=== PATIENT | male | born 1940 | race Caucasian/White ===

== ENCOUNTER → 2021-10-22 12:46 | Outpatient (BNVA) | payer MEDICARE, SELFPAY | PROVIDERS: Family Provider Nurse Practitioner Family; PCP Nurse Practitioner Family; Visit Provider Internal Medicine Cardiovascular Disease | DX: I25.10 Atherosclerotic heart disease of native coronary artery without angina pectoris (principal); I10 Essential (primary) hypertension; E78.5 Hyperlipidemia, unspecified; I73.9 Peripheral vascular disease, unspecified; Z87.891 Personal history of nicotine dependence | CPT/HCPCS: 99204 ==

== ENCOUNTER 2021-12-23 12:25 | Outpatient (CLI) | payer MEDICARE, SELFPAY ==
--- NOTE | 2021-12-23 12:45 | USCV_ITS ---
Solangegabriela Dima Age: 81 Gender: M : 1940 Exam Date: 12/23/2021 12:31 Ordering Phys: Pebbles Dominguez MD ([email or web address]) Technologist: CT Exam Location[place] [facility] [place]ication: pad Risk Factors: Previous Vascular Surgery: RIGHT LEFT BP: 139.0 / 59.00 BP: 143.0/ 62.00 0 0 Waveform Velocity (cm/s) Velocity (cm/s) Waveform Triphasic 129.6 Iliac Prox 127.1 Biphasic Triphasic 149.6 Iliac Mid 151.9 Biphasic Triphasic 172.1 Iliac Distal 199.8 Biphasic Triphasic 222.2 SECRETARIAL TEACHER 106.5 Biphasic Biphasic 126.2 SFA Prox 93.3 Biphasic Biphasic 234.8 SFA Mid 123.9 Biphasic Biphasic SFA Dist Biphasic 71.3 235.9 Biphasic 59.1 POP 61.1 Biphasic Biphasic 42.3 YARD HOSTLER 63.3 Biphasic DPA 34.3 Biphasic 1.0 LESLEE 0.[address] dpa ocluded, some stenosis in sfa's Mild diffuse plaque in the iliac and femoral artery on the right side. Normal Doppler flow signals in the right dorsalis pedis artery. Mild to moderate diffuse plaque in the iliac and femoral arteries on the left side. Resting LESLEE of 1.0 on the right and 0.9 on the left CONCLUSIONS 1. Normal resting LESLEE of 1.0 on the right side with a mild diffuse plaque in the iliac and femoral arteries. The right dorsalis pedis artery appears to be occluded. 2. Abnormal resting LESLEE of 0.9 on the left side suggesting mild peripheral artery disease. Mild to moderate diffuse plaques were noted in the iliac and femoral arteries on the left side. Dr Ramses Brian MD [facility] (Electronically Signed) Final Date: 24 December 2021 09:45 S
== END 2021-12-23 12:26 | disposition home or self-care (01) ==
LOC: RAD 12:26
PROVIDERS: PCP Nurse Practitioner Family; Visit Provider Internal Medicine Cardiovascular Disease
DX: I73.9 Peripheral vascular disease, unspecified (principal)
CPT/HCPCS: 93925

== ENCOUNTER 2022-02-04 08:07 | Outpatient (CLI) | payer MEDICARE, SELFPAY ==
--- NOTE | 2022-02-04 | ECG_ITS ---
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 Interpretive Statements NAME OF STUDY: LEXISCAN SESTAMIBI STRESS TEST INDICATION: Chest Pain PROCEDURE: At the baseline, the blood pressure was 146/94 mm Hg with a heart rate of 70 bpm. The electrocardiogram showed sinus rhythm, normal axis and no specific T wave inversion in lead III, aVF, V5 and V6. ??? The Lexiscan was infused over a period of 20 seconds. A total of 0.4 milligrams of Lexiscan was infused. The stress phase was continued for a total of 5 minutes. Heart rate at the end of the stress phase was 81 bpm with a blood pressure of 160/72 mm Hg. The EKG at the peak infusion revealed no significant ST-T wave changes. The study was terminated due to protocol completion. ??? Sestamibi was injected 20 seconds after the Lexiscan infusion. ??? Blood pressure at the end of the recovery phase was 144/68 mm Hg with a heart rate of 79 beats per minute. ??? CONCLUSION: 1. No significant EKG changes with the LexiScan infusion. 2. No LexiScan induced chest pain or cardiac arrhythmia. 3. Normal blood pressure and heart rate response. 4. Sestamibi/sestamibi perfusion scan pending; see separate report. Electronically Signed On 02-07-2022 8:50:38 COMPENSATOR WORKER by Pebbles Dominguez M.D. [id number]
--- NOTE | 2022-02-04 08:16 | NMCV_ITS ---
NM jeison perf SPECT r/s* [id number] Dima Page Age: 81 Gender: M : 1940 Exam Date: 02/04/2022 09:30 Ordering Phys: Pebbles Dominguez MD ([email or web address]) Technologist: LIZZETH Escalante Exam Location: [facility] Indications: CHEST PAIN, ATHEROSCLEROTIC HEART DISEASE OF [place] CORONARY ARTERY STRESS TEST Please see separate stress test report in [facility] for full findings IMAGE PROTOCOL Rest/Stress 1 Lexiscan Day Radiopharmaceutical Dose (mCi) Administration Site Administered by Rest: Tc-99m 10.7 IV LIZZETH Vallejo Sestamibi Stress:Tc-99m 32.2 IV LIZZETH Vallejo Sestamibi Rest: 04-Feb-2022 60 Discovery 630 Stress: 04-Feb-2022 30 Discovery 630 0.4mg Lexiscan. Images obtained in supine and prone position. SPECT RESULTS Technical Quality: Excellent Raw Data Analysis: Normal Image Corrections: No attenuation or motion correction applied Summed Stress Score: 16 Summed Rest Score: 14 Summed Difference Score: 3 PERFUSION FINDINGS Large sized perfusion abnormality of moderate to severe severity of basal to apical inferior, basal to mid inferolateral, apical lateral and apical downing on rest images with mild reversibility in the basal and apical lateral downing on stress images. FUNCTIONAL RESULTS (calculated via Gated SPECT) Stress Image LV EF (%): 60 Stress EDV (mL):120 TID: 0.96 Stress ESV (mL):48 FUNCTIONAL FINDINGS: The left ventricle is normal in size. Transient Ischemia Dilatation of 0.96. The left ventricular ejection fraction is normal with a value of 60%. There is hypokinesis of inferior wall. IMPRESSIONS 1. Large sized perfusion abnormality of basal to apical inferior, basal to mid inferolateral, apical lateral and apical downing with mild reversibility in the basal and apical lateral downing on stress images. 2. This is suggestive of old myocardial infarction and right coronary artery and circumflex artery territory with mild nicolas-infarct ischemia in circumflex artery territory. 3. The left ventricular ejection fraction is normal with a value of 60%. There is hypokinesis of inferior wall. 4. EKG portion of the study will be reported separately. Pebbles Dominguez MD (Electronically Signed) Final Date: 10 February 2022 16:56 S
[2022-02-04 08:53] VITALS: BMI 25.5
[2022-02-04] MEDS: regadenoson 0.4 Mg/5 ml Syringe IVP (10:01)
[2022-02-04 11:10] VITALS: BP 144/68; PULSE 76
== END 2022-02-04 08:08 | disposition home or self-care (01) ==
PROVIDERS: PCP Nurse Practitioner Family; Visit Provider Internal Medicine Cardiovascular Disease
DX: R07.9 Chest pain, unspecified (principal); I25.10 Atherosclerotic heart disease of native coronary artery without angina pectoris
CPT/HCPCS: 36415; 78452; 93017; 96374; A9500; J2785

== ENCOUNTER → 2022-03-18 14:37 | Outpatient (BNVA) | payer MEDICARE, SELFPAY | PROVIDERS: PCP Nurse Practitioner Family; Visit Provider Internal Medicine Cardiovascular Disease | DX: R00.1 Bradycardia, unspecified (principal); I10 Essential (primary) hypertension; I25.10 Atherosclerotic heart disease of native coronary artery without angina pectoris; E78.5 Hyperlipidemia, unspecified; I73.9 Peripheral vascular disease, unspecified; Z87.891 Personal history of nicotine dependence | CPT/HCPCS: 99214; Q3014 ==

== ENCOUNTER 2022-06-03 16:48 | Outpatient (CLI) | payer MEDICARE, SELFPAY ==
--- NOTE | 2022-06-03 17:01 | XR_ITS ---
WS: [id number] XR chest 2V* [id number] REASON FOR EXAM: DYSPNEA FINDINGS: No recent exam for comparison. Previous sternotomy with probable left internal mammary coronary bypass. Coronary artery stents. Normal heart size. Coarse reticular interstitial lung opacities with patchy groundglass density in the lower lobes. Moderate degenerative spondylosis in the mid and lower thoracic spine with flowing anterior osteophyt e formation. XR/XR chest 2V* [id number] IMPRESSION: Previous coronary bypass surgery and stent intervention. The lung changes are of unknown chronicity without relatively recent prior exam ination for comparison. Findings could represent acute or subacute congestive h eart failure or pneumonitis.
== END 2022-06-03 16:49 | disposition home or self-care (01) ==
PROVIDERS: PCP Nurse Practitioner Family; Visit Provider Nurse Practitioner Family
DX: R06.00 Dyspnea, unspecified (principal)
CPT/HCPCS: 71046

== ENCOUNTER 2022-10-20 14:38 | Outpatient (CLI) | payer MEDICARE, SELFPAY ==
--- NOTE | 2022-10-20 14:44 | CT_ITS ---
WS: [id number] CT chest wo con [id number] HISTORY: ABNORMAL CHEST XRAY TECHNIQUE: Axial imaging performed through the thorax. Coronal and sagittal reformats are submitted. All CT scans at [facility] use at least one of these dose optimization techniques: automated exposure control; mA and/or kV adjustment per patient size (includes targeted exams where dose is mat ched to clinical indication); or iterative reconstruction. CONTRAST: None DLP: 235.42 mGy.cm COMPARISON: Chest radiograph 06/03/2022 Lungs and central airway: Hyperinflated lungs. Mild flattening and elevation of the RIGHT hemidiaphra gm. There is moderate interstitial thickening in the periphery of the upper and lower lung hidalgo. Gr eatest in the RIGHT lower lung field. As compared to the chest radiograph the aeration appears improv ed. Majority of the changes persisting now are probably related to chronic interstitial lung disease. No definite honeycombing. Bilateral upper lobe pulmonary nodules. RIGHT upper lobe pulmonary nodule is 3 mm. LEFT upper lobe pulmonary nodule 4.4 mm. Additional LEFT lower lobe pulmonary nodule measuri ng 4 mm no areas of dense consolidation or pneumonia. Pleura: Normal. No pleural effusion. Heart and pericardium: Prior CABG. Heart is top normal size. Very dense point [place] coronary artery calcif ications. Mediastinum and fatuma: No mediastinum or hilar adenopathy. Vessels: Moderate atherosclerosis aorta. No aneurysm. Calcification continues into the proximal great vessels. Normal sized pulmonary artery. Chest wall and lower neck: No soft tissue masses. Upper abdomen: Small hiatal hernia. Fullness in the renal pelves. Kidneys are incompletely visualized but I suspect these are benign parapelvic cysts. Splenic granulomata. Mild atrophy of the pancreas. No adrenal mass. Osseous structures: Osteopenia. Ossification of the outer fibers of the annulus fibrosis IMPRESSION: 1. Overall as compared to the chest radiograph there has been improvement in the aeration of both aldo gs. 2. Peripheral interstitial thickening is most likely due to interstitial pulmonary fibrosis. Bilatera l pulmonary nodules as described above. Recommend follow-up chest CT in 6 months. 3. Prior CABG. 4. No mediastinal or hilar adenopathy. 5. Ankylosing spondylitis thoracic spine.
== END 2022-10-20 14:39 | disposition home or self-care (01) ==
PROVIDERS: PCP Nurse Practitioner Family; Visit Provider Nurse Practitioner Family
DX: R91.8 Other nonspecific abnormal finding of lung field (principal); Z95.1 Presence of aortocoronary bypass graft; M45.4 Ankylosing spondylitis of thoracic region
CPT/HCPCS: 71250

== ENCOUNTER → 2022-10-22 14:22 | Outpatient (BNVA) | payer MEDICARE, SELFPAY | PROVIDERS: PCP Nurse Practitioner Family; Visit Provider Internal Medicine Pulmonary Disease | DX: R40.0 Somnolence (principal); J84.10 Pulmonary fibrosis, unspecified; R91.8 Other nonspecific abnormal finding of lung field | CPT/HCPCS: 99204 ==

== ENCOUNTER 2023-01-06 11:07 | Outpatient (CLI) | payer MEDICARE, SELFPAY ==
--- NOTE | 2023-01-06 11:12 | USCV_ITS ---
SolangeDima ochoa Age: 82 Gender: M : 1940 Exam Date: 01/06/2023 11:18 Ordering Phys: Jermain Kay MD Technologist: [place] [facility] [place]: pvd Risk Factors: Previous Vascular Surgery: RIGHT LEFT BP: 138.0 / 61.00 BP: 140.0/ 78.00 0 0 Waveform Velocity (cm/s) Velocity (cm/s) Waveform Triphasic 124.6 Iliac Prox 165.4 Biphasic Biphasic 145.7 Iliac Mid 148.1 Biphasic Biphasic 145.9 Iliac Distal 173.7 Biphasic Biphasic 135.2 CAMP NURSE 113.7 Biphasic Biphasic 131.7 SFA Prox 97.1 Biphasic Biphasic 328.5 SFA Mid 258.5 Biphasic Biphasic SFA Dist Biphasic 124.0 152.3 Biphasic 60.3 POP 83.6 Biphasic Biphasic 49.4 SUPERVISOR SHOP 65.1 Triphasic N/A DPA 66.1 Triphasic 0.9 LESLEE 1.0 FINDINGS Mild diffuse plaques were noted at the iliac, femoral and popliteal arteries bilaterally Elevated Doppler flow velocities in the distal SFA bilaterally on the right and mid SFA on the left No Doppler signals in the right dorsalis pedis artery. Resting LESLEE of 0.9 on the right side and 1.0 on the left side CONCLUSIONS 1. Slightly diminished resting LESLEE on the right side suggesting mild peripheral artery disease. 2. Normal resting LESLEE on the left side, suggesting no significant arterial obstruction. 3. Elevated Doppler flow velocities and flow turbulence at the distal SFA on the right side and mid SFA on the left side ,suggesting greater than 50% stenosis. Consider exercise LESLEE to better evaluate the functional Significance Dr Ramses Brian MD [facility] (Electronically Signed) Final Date: 11 January 2023 20:03 S
== END 2023-01-06 11:08 | disposition home or self-care (01) ==
LOC: RAD 11:07
PROVIDERS: PCP Nurse Practitioner Family; Visit Provider Internal Medicine
DX: I73.9 Peripheral vascular disease, unspecified (principal)
CPT/HCPCS: 93925

== ENCOUNTER 2023-01-07 12:50 | Outpatient (CLI) | payer MEDICARE, SELFPAY ==
--- NOTE | 2023-01-07 13:30 | CT_ITS ---
WS: [id number] CT chest wo con [id number] HISTORY: 3 month f/u TECHNIQUE: Axial imaging performed through the thorax. Coronal and sagittal reformats are submitted. All CT scans at [facility] use at least one of these dose optimization techniques: automated exposure control; mA and/or kV adjustment per patient size (includes targeted exams where dose is mat ched to clinical indication); or iterative reconstruction. CONTRAST: None DLP: 330.13 mGy.cm COMPARISON: 10/20/2022 Lungs and central airway: Hyperexpansion with moderate bilateral peripheral interstitial thickening. Previously described subcentimeter pulmonary nodules are reidentified in the upper lobes and LEFT low er lobe. These nodules are all similar to 10/20/2022. There has been increase in the amount of pleural thickening suggesting mild fluid overload. This is noted bilaterally. Also there is slight increase in the amount of interstitial prominence suggesting there also may be mild edema present. No mass or consolidation. Pleura: No significant effusions. Heart and pericardium: Prior CABG. Mild cardiomegaly. Mediastinum and fatuma: No adenopathy Vessels: Moderate atherosclerosis aorta. No aneurysm. Normal sized pulmonary artery. Chest wall and lower neck: No soft tissue masses. Upper abdomen: Small hiatal hernia. Fullness in the renal pelvis. I suspect there is a benign parapel elizabet cyst. Splenic granulomata. Pancreatic atrophy. Osseous structures: No destructive bone lesions. IMPRESSION: 1. Interstitial fibrosis appears very slightly more prominent than on the prior study with no areas o f consolidation. Stable bilateral nodules which are all less than a centimeter. 2. Mild increased thickening along the fissures. Favor there is probably a small amount of fluid over load. No pneumonia. 3. Prior CABG. 4. Mild cardiomegaly. 5. No acute interval change upper abdomen.
== END 2023-01-07 12:51 | disposition home or self-care (01) ==
LOC: RAD 12:50
PROVIDERS: PCP Nurse Practitioner Family; Visit Provider Internal Medicine Pulmonary Disease
DX: R91.8 Other nonspecific abnormal finding of lung field (principal); J84.10 Pulmonary fibrosis, unspecified; Z95.1 Presence of aortocoronary bypass graft; I51.7 Cardiomegaly
CPT/HCPCS: 71250

== ENCOUNTER → 2023-01-20 14:46 | Outpatient (BNVA) | payer MEDICARE, SELFPAY | PROVIDERS: PCP Nurse Practitioner Family; Visit Provider Nurse Practitioner Family | DX: L57.0 Actinic keratosis (principal); D48.5 Neoplasm of uncertain behavior of skin; L81.4 Other melanin hyperpigmentation; L57.8 Other skin changes due to chronic exposure to nonionizing radiation; D22.5 Melanocytic nevi of trunk | CPT/HCPCS: 11102; 17000; 99213 ==

== ENCOUNTER 2023-02-04 09:57 | Outpatient (CLI) | payer MEDICARE, SELFPAY ==
--- NOTE | 2023-02-04 10:15 | USCV_ITS ---
Dima Page Age: 82 Gender: M : 1940 Exam Date: 02/04/2023 10:27 Ordering Phys: Jose Emery MD Technologist: KRISTI [place] [facility] [place]ication: EVAL OF LV FX BP: 130 / 70 HR: 73 Rhythm: Sinus Technical Quality: Adequate MEASUREMENTS (Male / Female) Normal Values 2D ECHO LV Chamber Size 4.2 cm RV Chamber Size 3.3 cm LVOT Diameter 2.0 cm LV Ejection Fraction MOD 2C 44.8 % LV Ejection Fraction 2C AL 44.9 % LA Diameter 4.6 cm LA Width 3.8 cm LA Height 5.1 cm RA Width 3.5 cm RA Height 5.1 cm Aorta at Sinotubular Diameter 3.2 cm IVC Diameter 1.7 cm M-MODE Aortic Annulus Diameter 3.4 cm LA Ao Ratio MM 1.5 MV E Point Septal Separation 0.6 cm DOPPLER AV Peak Velocity 132.0 cm/s LVOT Peak Velocity 79.0 cm/s AV Area Cont Eq vti 2.1 cm squared AV Area Cont Eq pk 1.9 cm squared MV Area PHT 3.1 cm squared Mitral E to A Ratio 1.1 MV E' Velocity 64.0 cm/s Mitral E to MV E' Ratio 13.0 Mitral E to LV E' Lateral Ratio 13.6 Mitral E to LV E' Septal Ratio 12.5 TR Peak Velocity 259.3 cm/s TR Peak Gradient 26.9 mmHg TR Mean Velocity 215.4 cm/s TR Mean Gradient 19.4 mmHg TR Velocity Time Integral 87.2 cm TV Peak E Velocity 73.0 cm/s Right Atrial Pressure 3.0 mmHg Pulmonary Artery Systolic Pressu 29.9 mmHg PV Peak Velocity 67.3 cm/s RV Acceleration Time 0.1 s RV Ejection Time 0.4 s RV AcT/ET 0.3 FINDINGS Left Ventricle Normal LV size with diminished ejection fraction of 45%. Moderate diffuse hypokinesia of the inferior wall. Mild diffuse hypokinesia of the anteroseptal segments. Right Ventricle The right ventricle is normal in size and function. Right Atrium The right atrium is normal in size. Left Atrium Moderately increased left atrial size. Mitral Valve Moderate mitral annular calcification. Moderate mitral valve regurgitation. Aortic Valve Thickened aortic valve. Tricuspid Valve Trace to mild tricuspid valve regurgitation. Estimated pulmonary artery peak systolic pressure 30 mmHg Pulmonic Valve No gross abnormalities noted Pericardium Normal pericardium without effusion. Aorta Normal ascending aorta dimension. IVC Normal inferior vena cava. CONCLUSIONS Normal LV size with diminished ejection fraction of 45%. Moderate diffuse hypokinesia of the inferior wall. Mild diffuse hypokinesia of the anteroseptal segments. Moderately increased left atrial size. Moderate mitral annular calcification. Moderate mitral valve regurgitation. Thickened aortic valve. Trace to mild tricuspid valve regurgitation. Estimated pulmonary artery peak systolic pressure 30 mmHg There is no pericardial effusion. There are no intracardiac masses. No similar previous studies are available for comparison Dr Ramses Brian MD [facility] (Electronically Signed) Final Date: 06 February 2023 08:57 S
== END 2023-02-04 09:58 | disposition home or self-care (01) ==
LOC: RAD 09:57
PROVIDERS: PCP Nurse Practitioner Family; Visit Provider Internal Medicine Pulmonary Disease
DX: R06.81 Apnea, not elsewhere classified (principal); I08.3 Combined rheumatic disorders of mitral, aortic and tricuspid valves
CPT/HCPCS: 93306; 94010; 94618; 94726; 94729

== ENCOUNTER → 2023-02-10 10:30 | Outpatient (BNVA) | payer MEDICARE, SELFPAY | PROVIDERS: PCP Nurse Practitioner Family; Visit Provider Nurse Practitioner Family | DX: M79.661 Pain in right lower leg (principal); M79.662 Pain in left lower leg; I10 Essential (primary) hypertension; E55.9 Vitamin D deficiency, unspecified; Z12.5 Encounter for screening for malignant neoplasm of prostate; R53.83 Other fatigue | CPT/HCPCS: 80053; 80061; 82306; 82607; 83735; 84403; 84443; 85025; G0103 ==

== ENCOUNTER 2023-02-24 13:46 | Outpatient (CLI) | payer MEDICARE, SELFPAY ==
[2023-02-24 14:02] LABS: Basophils # 0.1 10^3/uL (0.0-0.1); Basophils % 0.8 %; Eosinophils # 0.9 10^3/uL (0.0-0.8); Eosinophils % 8.4 %; Lymphocytes # 1.6 10^3/uL (0.8-4.8); Lymphocytes % 14.9 %; Mean Corpuscular HGB Conc 32.6 g/dL (30-55); Mean Corpuscular Hemoglobin 30.2 pg (27-33); Mean Corpuscular Volume 92.4 fl (82-101); Mean Platelet Volume 9.1 fL (7.4-10.4); Monocytes % 9.4 %; Neutrophils % 66.1 %; Nucleated Red Blood Cells % 0 %; Platelet Count 288 10^3/cmm (157-399); Red Blood Count 3.68 10^6/uL (3.85-5.65); Red Cell Distribution Width 13.2 % (12.1-15.1); White Blood Count 10.74 10^3/uL (3.29-11.43)
[2023-02-24 14:23] LABS: Alanine Aminotransferase 6 U/L (0-41); Albumin Level 4.3 g/dL (3.5-5.2); Alkaline Phosphatase 66 U/L (40-130); Anion Gap 19.2 (5-19); Aspartate Amino Transferase 15 U/L (0-40); Blood Urea Nitrogen 31 mg/dL (8-23); Calcium 9.2 mg/dL (8.5-10.5); Carbon Dioxide 22 mmol/L (22-29); Chloride 102 mmol/L (98-107); Ferritin 56 ng/mL (30-400); Globulin 3.5 g/dL (1.3-4.6); Glucose 99 mg/dL (65-115); Iron 55 ug/dL (59-158); Osmolality Calculated 295 mOsm/kg (285-295); Percent Saturation 20.1 % (20-50); Potassium 4.2 mmol/L (3.5-5.1); Sodium 139 mmol/L (136-145); Total Bilirubin 0.4 mg/dL (0.15-1.2); Total Iron Binding Capacity 273 mcg/dl; Total Protein 7.8 g/dL (6.6-8.7); Unsaturated Iron Binding 218 ug/dL (112-347)
--- NOTE | 2023-02-24 14:30 | USCV_ITS ---
Dima Page Age: 82 Gender: M : 1940 Exam Date: 02/24/2023 14:18 Ordering Phys: Emily Rae NURSE EPIDEMIOLOGIST NURSE EPIDEMIOLOGIST Technologist: CT Exam Location: [facility] – [place] Indication: swelling PROCEDURES: Venous duplex imaging was performed in bilateral lower extremities. Bilaterally, the common femoral, superficial femoral, profunda femoral, popliteal, posterior tibial, greater saphenous veins, and the peroneal trunk were identified and interrogated in the standard fashion. These veins were found to be easily compressible with spontaneous blood flow. No evidence of insufficiency or thrombus noted. FINDINGS: no dvt CONCLUSIONS No evidence of right lower extremity DVT. No evidence of left lower extremity DVT. Theron Sears MD (Electronically Signed) Final Date: 24 February 2023 16:31 S
[2023-02-24 14:38] LABS: Vitamin B12 333 pg/mL (232-1245)
[2023-02-24 14:39] LABS: Folate Level 15.6 ng/mL (4.5-32.2)
[2023-02-24 15:52] LABS: Creatinine Urine, Random 73 mg/dL (39-259); Microalbumin Random Urine 3 ug/dL (0-20)
[2023-02-24 15:53] LABS: Microalbum Creatinine Ratio Ur 41 mg/dL (0-20)
== END 2023-02-24 13:47 | disposition home or self-care (01) ==
LOC: RAD 13:46
PROVIDERS: PCP Nurse Practitioner Family; Visit Provider Nurse Practitioner Family
DX: M79.661 Pain in right lower leg (principal); M79.662 Pain in left lower leg; M79.89 Other specified soft tissue disorders; D64.9 Anemia, unspecified
CPT/HCPCS: 36415; 80053; 82044; 82607; 82728; 82746; 83540; 83550; 85025; 93970

== ENCOUNTER → 2023-02-25 11:46 | Outpatient (BNVA) | payer MEDICARE, SELFPAY | PROVIDERS: PCP Nurse Practitioner Family; Visit Provider Internal Medicine Pulmonary Disease | DX: R06.02 Shortness of breath (principal); I10 Essential (primary) hypertension; Z79.899 Other long term (current) drug therapy; J82.83 Eosinophilic asthma; Z95.5 Presence of coronary angioplasty implant and graft; Z87.891 Personal history of nicotine dependence; J84.10 Pulmonary fibrosis, unspecified; G47.19 Other hypersomnia | CPT/HCPCS: 36415; 85025; 85651; 86140; 86160; 86162; 86200; 86235; 86255; 86376; 86431; 99214 ==

== ENCOUNTER → 2023-04-06 08:32 | Outpatient (BNVA) | payer MEDICARE, SELFPAY | PROVIDERS: PCP Nurse Practitioner Family; Visit Provider Nurse Practitioner Family | DX: I10 Essential (primary) hypertension (principal); M25.50 Pain in unspecified joint; R73.9 Hyperglycemia, unspecified; Z79.899 Other long term (current) drug therapy | CPT/HCPCS: 80053; 83036; 83735; 85025; 86618; 86666; 86757 ==

== ENCOUNTER → 2023-07-05 09:40 | Outpatient (BNVA) | payer MEDICARE, SELFPAY | PROVIDERS: PCP Nurse Practitioner Family; Visit Provider Nurse Practitioner Family | DX: I10 Essential (primary) hypertension (principal); R53.82 Chronic fatigue, unspecified | CPT/HCPCS: 11102; 17000; 80053; 80061; 84443; 85025; 86618; 86666; 86757; 99213 ==

== ENCOUNTER → 2023-12-14 09:40 | Outpatient (BNVA) | payer MEDICARE, SELFPAY | PROVIDERS: PCP Nurse Practitioner Family; Visit Provider Dermatology | DX: C44.42 Squamous cell carcinoma of skin of scalp and neck (principal) | CPT/HCPCS: 13132; 17311 ==

== ENCOUNTER → 2025-02-16 09:31 | Outpatient (BNVA) | payer MEDICARE, SELFPAY | PROVIDERS: PCP Nurse Practitioner Family; Referring Provider Nurse Practitioner Family; Visit Provider Internal Medicine | DX: J84.10 Pulmonary fibrosis, unspecified (principal); J82.83 Eosinophilic asthma; I25.10 Atherosclerotic heart disease of native coronary artery without angina pectoris; I10 Essential (primary) hypertension; R91.8 Other nonspecific abnormal finding of lung field; Z95.1 Presence of aortocoronary bypass graft; F17.200 Nicotine dependence, unspecified, uncomplicated; J84.9 Interstitial pulmonary disease, unspecified; J44.9 Chronic obstructive pulmonary disease, unspecified | CPT/HCPCS: 99214; Q3014 ==

== ENCOUNTER → 2025-02-19 10:14 | Outpatient (BNVA) | payer MEDICARE, SELFPAY | PROVIDERS: PCP Nurse Practitioner Family; Visit Provider Nurse Practitioner Family | DX: L57.0 Actinic keratosis (principal); L82.1 Other seborrheic keratosis; D22.5 Melanocytic nevi of trunk; L81.4 Other melanin hyperpigmentation; L57.8 Other skin changes due to chronic exposure to nonionizing radiation; Z85.828 Personal history of other malignant neoplasm of skin | CPT/HCPCS: 17004; 99213 ==